=== PATIENT | female | born 1940 | race Caucasian/White ===

== ENCOUNTER → 2022-11-01 | Outpatient (CLI) | payer MEDICARE ==
--- NOTE | 2022-11-01 10:37 | CT ---
EXAMINATION TYPE: CT abdomen pelvis wo con CT DLP: 796 mGycm, Automated exposure control for dose reduction was used. DATE OF EXAM: 11/01/2022 10:19 AM COMPARISON: None CLINICAL INDICATION:Female, 81 years old with history of M54.50 LOW BACK PAIN, UNSPECIFIED; LOW BACK PAIN TECHNIQUE: Standard CT of the abdomen and pelvis without IV or oral contrast. Lack of IV or oral co ntrast limits evaluation of solid and hollow organ viscera. Coronal and sagittal reformats were perfo rmed. FINDINGS: LOWER CHEST: Unremarkable ABDOMEN LIVER: Left hepatic lobe 2.7 cm cyst. Additional subcentimeter hypodense foci within the liver which are too small characters but likely represent cysts. GALLBLADDER AND BILE DUCTS: Mildly distended gallbladder without surrounding inflammatory changes. No biliary ductal dilatation. PANCREAS: Unremarkable noncontrast appearance SPLEEN: Unremarkable noncontrast appearance ADRENAL GLANDS: Unremarkable noncontrast appearance. KIDNEYS AND URETERS: No evidence of hydronephrosis or renal calculus. Right superior pole cyst measur ing up to 5.8 cm. Right mid kidney cyst measuring up to 4.7 cm. PELVIS BLADDER: Poorly visualized due to streak artifact from hip prosthesis. REPRODUCTIVE: Poorly visualized due to streak artifact from hip prosthesis. ABDOMEN & PELVIS STOMACH AND BOWEL: Small hiatal hernia, duodenum is unremarkable. Distal colonic diverticulosis witho ut evidence for acute diverticulitis. Postsurgical changes from appendectomy. No evidence of bowel ob struction. PERITONEUM: No evidence of pneumoperitoneum or free fluid. VASCULATURE: Mild atherosclerotic calcifications are present throughout the abdominal aorta and its b ranches. No evidence of aortic aneurysm. MUSCULOSKELETAL: Dextrocurvature of the thoracolumbar spine. Prominent Schmorl's nodes involving the inferior endplate of the L3 and L4 vertebral bodies. Schmorl's node versus central compression deform ity involving the superior endplate of the L2 vertebral body with approximately 10% height loss and n o retropulsion. Multilevel degenerative disc disease with disc space narrowing, endplate sclerosis, v acuum disc disease, and anterior osteophytosis. Grade 1 anterolisthesis of L3 on L4 and L4 on L5. No pars defects. Multilevel facet arthropathy. Postsurgical changes from bilateral total hip arthroplast y. This creates streak artifact which limits evaluation. Degenerative changes of the pubic symphysis. LYMPH NODES: No gross evidence for lymphadenopathy. SOFT TISSUE/ABDOMINAL WALL: Small fat filled umbilical and periumbilical hernias. IMPRESSION: 1. No acute intra-abdominal/pelvic process. 2. Age-indeterminate Schmorl's node versus superior endplate compression deformity of the L2 vertebra l body with approximately 10% height loss and no retropulsion. 3. Multilevel degenerative disc disease and facet arthropathy as described above. 4. Colonic diverticulosis without evidence for acute diverticulitis.
== END | disposition home or self-care (01) ==
LOC: RADCTMAIN 09:32
PROVIDERS: ATTEND Family Medicine
DX: K57.30 Diverticulosis of large intestine without perforation or abscess without bleeding (principal); M51.36 Other intervertebral disc degeneration, lumbar region; M47.816 Spondylosis without myelopathy or radiculopathy, lumbar region; M43.16 Spondylolisthesis, lumbar region; Z96.643 Presence of artificial hip joint, bilateral
CPT/HCPCS: 74176

== ENCOUNTER 2024-02-18 14:57 | Emergency (ER) | payer MEDICARE ==
[2024-02-18 15:02] VITALS: BP 159/73; PULSE 68; RESP 16; TEMP 97.6
--- NOTE | 2024-02-18 15:25 | ED ---
Fall HPI - General Chief Complaint: Fall Stated Complaint: left hip pain Time Seen by Provider: 02/18/24 15:03 Source: patient, RN notes reviewed Mode of arrival: wheelchair Limitations: no limitations - History of Present Illness Initial Comments: This is an 83-year-old female who presents to the emergency department for a fall. States that 2 days ago a chair gave out from underneath her causing her to fall and injure her hips. Unsure exactly how she landed, but she has since had ongoing pain to both of her hips and buttocks. Denies hitting her head or taking any blood thinners. She has been able to ambulate, but states that it is difficult. She has tried taking ibuprofen without much relief. MD Complaint: fall - Related Data Previous Rx's Medication Instructions Recorded Meloxicam [Mobic] 15 mg PO DAILY PRN #20 tab 02/18/24 methocarbamoL [Robaxin-750] 750 mg PO QID PRN #30 tab 02/18/24 Allergies Allergy/AdvReac Type Severity Reaction Status Date / Time No Known Allergies Allergy Verified 02/18/24 15:02 Review of Systems ROS Statement: Those systems with pertinent positive or pertinent negative responses have been documented in the HPI. ROS Other: All systems not noted in ROS Statement are negative. Past Medical History Smoking Status: Never smoker Past Alcohol Use History: Occasional Past Drug Use History: None Reported General Exam Limitations: no limitations General appearance: alert, in no apparent distress Head exam: Present: atraumatic, normocephalic, normal inspection Respiratory exam: Present: normal lung sounds bilaterally. Absent: respiratory distress, wheezes, rales, rhonchi, stridor Cardiovascular Exam: Present: regular rate, normal rhythm, normal heart sounds. Absent: systolic murmur, diastolic murmur, rubs, gallop, clicks Extremities exam: Present: other (No shortening or rotation of the bilateral lower extremities. Full range of motion, however this does induce pain. 2+ DP and PT pulses bilaterally) Neurological exam: Present: alert, oriented X3, CN II-XII intact Psychiatric exam: Present: normal affect, normal mood Skin exam: Present: warm, dry, intact, normal color. Absent: rash Course Vital Signs 02/18/24 14:59 Temperature 97.6 F Pulse Rate 68 Respiratory 16 Rate Blood Pressure 159/73 O2 Sat by Pulse 97 Oximetry Medical Decision Making - Medical Decision Making This is an 83-year-old female who presents to the emergency department for hip pain after a fall. Was pt. sent in by a medical professional or institution? @ -No Did you speak to anyone other than the patient for history? @ -No Did you review nursing and triage notes? @ -Yes, and I agree, it is accurate with regards to the patient's symptoms. Were old charts reviewed? @ -No Differential Diagnosis? @ -Differential Hip Pain: Fracture, dislocation, osteoarthritis, rheumatoid arthritis, septic arthritis, gout, synovitis, piriformis syndrome, bursitis, arterial occlusion, DVT, femoroacetabular inpingement, labral tear, avascular necrosis, SI joint dysfun ction, this is not meant to be an all-inclusive list. EKG interpreted by me (3pts min.)? @ -Not obtained X-rays interpreted by me (1pt min.)? @ -X-ray of the bilateral hips/AP pelvis and lumbar spine obtained. My interpretation identifies no acute fractures on any of the images. CT interpreted by me (1pt min.)? @ -CT scan of the pelvis obtained. My interpretation identifies no acute fractures. U/S interpreted by me (1pt. min.)? @ -Not obtained What testing was considered but not performed? (CT, X-rays, U/S, labs)? Why? @ -None What meds were considered but not given? Why? @ -None Did you discuss the management of the patient with other professionals? @ -No Did you reconcile home meds? @ -No Was smoking cessation discussed for >3mins.? @ -No Was critical care preformed (if so, how long)? @ -No Were there social determinants of health that impacted care today? How? (Homelessness, low income, unemployed, alcoholism, drug addiction, transportation, low edu. Level, literacy, decrease access to med. care, intermediate, rehab)? @ -No Was there de-escalation of care discussed even if they declined? (Discuss DNR or withdrawal of care, Hospice)? @ -No What co-morbidities impacted this encounter? (DM, HTN, Smoking, COPD, CAD, Cancer, CVA, Hep., AIDS, mental health diagnosis, sleep apnea, morbid obesity)? @ -None Was patient admitted / discharged? @ -Discharged. We first started with an x-ray of the bilateral hips/AP pelvis and lumbar spine. No acute process was identified. However, she continued to have pain and we proceeded with a CT scan of the pelvis. No acute fractures were identified on the CT scan. Findings reviewed with the patient. Pain treated in the emergency department. Prescription for meloxicam and Robaxin provided to see if that offers her any more benefit. Advised taking Tylenol as well and having follow-up with her primary care provider. Patient discharged home in stable condition. Case discussed with ED attending Dr. Crystal. Return precautions reviewed in depth, the patient is instructed to return to the emergency department with any new, worsening, or concerning symptoms. Patient verbalized understanding. Undiagnosed new problem with uncertain prognosis? @ -None Drug Therapy requiring intensive monitoring for toxicity (Heparin, Nitro, Insulin, Cardizem)? @ -None Were any procedures done? @ -None Diagnosis/symptom? @ -Fall, bilateral hip pain Acute, or Chronic, or Acute on Chronic? @ -Acute Uncomplicated (without systemic symptoms) or Complicated (systemic symptoms)? @ -Uncomplicated Side effects of treatment? @ -None Exacerbation, Progression, or Severe Exacerbation] @ -Not applicable Poses a threat to life or bodily function? @ -No - Radiology Data Radiology results: report reviewed, image reviewed Disposition Clinical Impression: Fall, Bilateral hip pain Disposition: HOME SELF-CARE Instructions (If sedation given, give patient instructions): Fall Prevention for Older Adults (ED), Hip Pain (ED) Additional Instructions: Return to the emergency department with any new, worsening, or concerning symptoms. Begin taking the Mobic once daily. Do not take any other anti- inflammatories such as ibuprofen if you choose to take this, take one or the other. You may take it with Tylenol. Take the Robaxin up to 4 times daily. Be aware that this may make you drowsy. Follow up with your primary care provider in 1-2 days. Prescriptions: Meloxicam [Mobic] 15 mg PO DAILY PRN #20 tab PRN Reason: Pain methocarbamoL [Robaxin-750] 750 mg PO QID PRN #30 tab PRN Reason: Pain Is patient prescribed a controlled substance at d/c from ED?: No Referrals: Monse Flaherty DO [Primary Care Provider] - 1-2 days Time of Disposition: 16:50
[2024-02-18] MEDS: KETOROLAC 15 MG/ML 1 ML VIAL IM STA (15:34)
[2024-02-18] MEDS: MORPHINE SULFATE 4 MG/ML SYRINGE IM STA (15:34)
--- NOTE | 2024-02-18 15:34 | XR ---
EXAMINATION TYPE: XR lumbar spine 2 or 3V DATE OF EXAM: 02/18/2024 3:26 PM COMPARISON: Previous CT abdomen/pelvis study 11/01/2022. CLINICAL INDICATION: Female, 83 years old with history of Fall; [facility] TECHNIQUE: XR lumbar spine 2 or 3V - Frontal, lateral and coned in L5-S1 lateral views of the spine. FINDINGS: Osseous structures demineralized. Multilevel lumbosacral spine degenerative changes. Modera te to severe chronic compression deformity of the L4 vertebral body. Moderate compression deformity o f the L2 superior endplate which appears slightly worse from prior study 10/30/2022. Anterolisthesis o f L3 on L4 and L4 on L5. Multilevel facet arthropathy, most pronounced at L4-5 and L5-S1. IMPRESSION: 1. No definite acute fracture or traumatic subluxation of the lumbosacral spine. 2. Chronic compression deformities of the L2 and L4 vertebral bodies, present on prior CT study 11/01. [facility], , 02/18/2024 3:32 PM
--- NOTE | 2024-02-18 15:36 | XR ---
EXAMINATION TYPE: XR Hip Bilateral and AP pelvis DATE OF EXAM: 02/18/2024 3:26 PM COMPARISON: Previous CT study 11/01/2022. CLINICAL INDICATION: Female, 83 years old with history of Fall; H TECHNIQUE: XR Hip Bilateral and AP pelvis; hip was examined in the frontal and lateral projections an d a AP pelvis. FINDINGS: No acute fracture or dislocation. Bilateral hip arthroplasty devices present. No periprosthetic lucency or evidence of loosening. Vascular calcifications. IMPRESSION: No acute fracture or dislocation. [facility], , 02/18/2024 3:34 PM
[2024-02-18] MEDS: HYDROmorphone 1 MG/ML 1 ML SYRINGE IVP STA (16:26)
--- NOTE | 2024-02-18 16:26 | CT ---
EXAMINATION TYPE: CT pelvis wo con DATE OF EXAM: 02/18/2024 4:15 PM COMPARISON: Previous CT abdomen/pelvis dated 10/30/2022. CLINICAL INDICATION: Female, 83 years old with history of Hip pain after fall; Bilateral hip pain aft er fall, negative xr results TECHNIQUE: Axial CT pelvis wo con;Sagittal and coronal reformats were created on a separate workstat ion. Oral contrast used: without Oral Contrast CT DLP: 440.1 mGycm, Automated exposure control for dose reduction was used. FINDINGS: Partially visualized abdomen demonstrate simple appearing exophytic cyst in the right kidney. No evid ence of bowel obstruction. Clonic diverticulosis without acute diverticulitis. Partially visualized g allbladder unremarkable. Calcified aspect of the abdominal aorta without definite aneurysmal dilatati on of the visualized portions. No significant free fluid or free air in the visualized abdomen and pe lvis. Small fat-containing. Fat-containing periumbilical hernia noted. Urinary bladder unremarkable b ut limited due to streak artifact from bilateral hip arthroplasty devices. No acute fracture or dislocation involving the bilateral hips. Pelvic bones appear acutely intact. Os seous structures demineralized. Partially visualized lumbosacral spine degenerative changes and moder ately severe L4 compression deformity, present on prior study 10/30/2022. IMPRESSION: No acute fracture or dislocation. [facility], , 02/18/2024 4:24 PM
[2024-02-18] MEDS: ACET/COD 300 MG/30 MG STARTER PACK 6 TAB BTL PO STA (17:01)
== END 2024-02-18 17:13 | disposition home or self-care (01) ==
LOC: EC 14:57
DX: M25.552 Pain in left hip (principal); M25.551 Pain in right hip; W07.XXXA Fall from chair, initial encounter
CPT/HCPCS: 72100; 73521; 72192; 99284; 96374; 96372; J2270; J1171; J1885

== ENCOUNTER → 2024-03-12 | Outpatient (CLI) | payer MEDICARE ==
--- NOTE | 2024-03-12 09:33 | MR ---
INDICATION: Patient age:Female; 83 years old; Reason for study: M54.41 R LUMBAGO WITH SCIATICA S32.000A WDG COMP F; [facility]. COMPARISONS: CT pelvis 02/18/2024, lumbar spine radiograph 02/18/2024, CT abdomen and pelvis 11/01/2022. TECHNIQUE: Multi planar, multi sequence imaging was performed utilizing: T1-weighted, T2-weighted, a nd turbo inversion recovery imaging of the lumbar spine. The patient was not given contrast. FINDINGS: There are 5 lumbar type vertebral bodies identified. Dextrocurvature of the lumbar spine wi th apex at L2-L3. Grade 1 anterolisthesis of L3 on L4 and L4 on L5. Hyperintense STIR signal involvin g the T12 vertebral body with corresponding low T1 signal. Demonstrates approximately 30% height loss with no retropulsion. Stable central compression deformity of the L2 vertebral body with approximate ly 50% height loss and no retropulsion. Stable anterior wedge compression deformity of the L4 vertebr al body with approximately 80% height loss and no retropulsion. Acute Schmorl's node involving the in ferior endplate of the L4 vertebral body. Type II Modic changes involving the surrounding endplates o f the T11-T12 disc. Multilevel anterior osteophytosis. Multilevel disc desiccation is present. The c onus medullaris and the distal spinal cord do appear unremarkable with regards to their signal intens ity and morphology. T11-T12: Small broad-based disc bulge without significant effacement of the intrathecal sac bilateral facet arthropathy. [id number] bilateral neuroforaminal stenosis. T12-L1: Small central disc protrusion without significant spinal canal stenosis. Bilateral facet arth ropathy. Moderate bilateral neural foraminal stenosis. L1-L2: Broad-based disc bulge with ligamentum flavum buckling and bilateral facet arthropathy contri bute to mild central canal stenosis. Moderate bilateral neuroforaminal stenosis. L2-L3: No significant disc pathology is identified. The spinal canal is patent. Bilateral facet arth ropathy with left greater than right. Moderate left neural foraminal stenosis. The right neural beto en is patent. L3-L4: Broad-based disc bulge with ligamentum flavum buckling and bilateral facet arthropathy contri bute to mild to moderate central canal stenosis. Severe bilateral neuroforaminal stenosis. L4-L5: Broad-based disc bulge with bilateral facet arthropathy and ligamentum flavum buckling contrib dillon to moderate central canal stenosis. Most prominent along the right lateral aspect due to facet ar thropathy. There is severe right and moderate left neural foraminal stenosis. L5-S1: Broad base disc bulge without significant effacement of the anterior thecal sac. Ligamentum f lavum buckling with bilateral facet arthropathy demonstrated. Moderate left and moderate to severe ri ght neural foraminal stenosis. Other significant findings: Post surgical changes from bilateral hip arthroplasty with susceptibility artifact. Partial visualization of T2 hyperintense right renal upper pole cyst measuring at least 5. 7 cm. Additional anterior exophytic right renal simple cysts measuring up to 4.[address] A few sub[address] T2 hyperintense cysts within both kidneys. Cholelithiasis demonstrated. IMPRESSION: 1. Acute/subacute compression fracture involving the T12 vertebral body with approximately 30% heigh t loss and no retropulsion. 2. Acute Schmorl's node involving the inferior endplate of the L4 vertebral body. 3. Stable compression deformities involving the L2 and L4 vertebral bodies. 4. Moderate to severe multilevel degenerative disc disease and facet arthropathy as described above. 5. Dextroscoliosis of the lumbar spine with grade 1 anterolisthesis of L3 on L4 and L4 on L5. [facility], , 03/12/2024 9:31 AM
== END | disposition home or self-care (01) ==
LOC: RADMRIMAIN 07:18
PROVIDERS: ATTEND Family Medicine
DX: S32.000A Wedge compression fracture of unspecified lumbar vertebra, initial encounter for closed fracture (principal); M54.41 Lumbago with sciatica, right side; M51.360 Other intervertebral disc degeneration, lumbar region with discogenic back pain only; M43.16 Spondylolisthesis, lumbar region
CPT/HCPCS: 72148

== ENCOUNTER → 2024-04-11 | Outpatient (CLI) | payer MEDICARE ==
--- NOTE | 2024-04-11 14:31 | CT ---
EXAMINATION TYPE: CT thoracic spine wo con DATE OF EXAM: 04/11/2024 COMPARISON: None CLINICAL INDICATION: Female, 83 years old with history of M54.6 thoracic pain; PHH, Chronic back pain CT DLP: combined 1128.4 mGycm Automated exposure control for dose reduction was used. Findings: There is a mild inferior endplate compression fracture of T12 with no significant retropulsion. There are marked flowing anterior osteophytes in the mid and lower thoracic spine consistent with DISH (di ffuse idiopathic skeletal hyperostosis). There is marked degenerative disc disease at T11/T12 level w here there is marked space narrowing and vacuum phenomenon. There is no large thoracic disc herniation. There is no spinal stenosis. The paraspinal soft tissues are unremarkable. IMPRESSION: 1. Mild inferior endplate compression fracture of T12 of indeterminate age. There is no significant r etropulsion. 2. No thoracic spinal stenosis. 3. DISH 4. Advanced degenerative disc disease at T11/T12 level. [facility], Workstation: [facility], 04/11/2024 2:29 PM
--- NOTE | 2024-04-11 15:05 | CT ---
EXAMINATION TYPE: CT lumbar spine wo con DATE OF EXAM: 04/11/2024 1:47 PM COMPARISON: None CLINICAL INDICATION: Female, 83 years old with history of M54.50 Lumbar pain; PHH, Chronic back pain TECHNIQUE: Unenhanced CT of the lumbar spine was performed. Bone and soft tissue window settings are submitted as well as coronal and sagittal reconstructions. CT DLP: combined 1128.[address] CTDI: mGy Automated exposure control for dose reduction was used. FINDINGS: There is a moderate superior endplate compression fracture of L2 of indeterminate age. There is a mod erate to severe compression fracture of L4 of indeterminate age. There is a mild inferior endplate co mpression fracture T12 of indeterminate age. There is severe degenerative disc disease at T11/T12 level where there is marked disc space narrowing , vacuum, and spondylosis. There is a slight anterolisthesis of L5 forward on L5. The disc spaces throughout the lumbar spine are well preserved. There is marked facet arthropathy in the lumbar spine from L1 to S1. Visualized sacrum and SI joints are unremarkable. Secondary to the grade 1 anterolisthesis of L4 and L5, circumferential disc bulge, marked hypertrophy of the facets and mild thickening of ligamentum flavum, there is a moderate to severe spinal stenosi s. There are no large lumbar disc herniations IMPRESSION: 1. Multiple vertebral segment compression fractures of indeterminate age, likely insufficiency fractu res given the osteopenia. 2. No significant retropulsion of the fractures. 3. Moderate to severe L4-5 spinal stenosis as described above. 4. Grade 1 anterolisthesis of L4 on L5. 5. Marked arthropathy of the facet joints throughout the lumbar spine. 6. Severe degenerative disc disease at the T11/T12 level. [facility], , 04/11/2024 3:03 PM
== END | disposition home or self-care (01) ==
LOC: RADCTMAIN 12:52
PROVIDERS: ATTEND Orthopaedic Surgery
DX: M43.16 Spondylolisthesis, lumbar region (principal); S32.040A Wedge compression fracture of fourth lumbar vertebra, initial encounter for closed fracture; M51.16 Intervertebral disc disorders with radiculopathy, lumbar region; M47.26 Other spondylosis with radiculopathy, lumbar region; M48.061 Spinal stenosis, lumbar region without neurogenic claudication
CPT/HCPCS: 72128; 72131

== ENCOUNTER → 2024-09-20 | Outpatient (CLI) | payer MEDICARE ==
--- NOTE | 2024-09-23 13:26 | BD ---
EXAMINATION TYPE: Axial Bone Density DATE OF EXAM: 09/20/2024 CLINICAL HISTORY: 83 years old Female. ICD-10 CODE: Z87.311 PERSONAL HISTORY OF (HEALED) OTHER PATHO LO , Additional History: Height: 60 in Weight: 151 lbs FRAX RISK QUESTIONS: Family History (Parent hip fracture): yes mother Secondary Osteoporosis: 3. Menopause before 45: total hysterectomy age 39 Rheumatoid Arthritis: yes HISTORY OF: Spine Fracture: l-spine 5 fx Surgery to Spine/Hip(left): 2024; hip replacement rt 1981 MEDICATIONS: Osteoporosis Medications: not now Which medication: Fosamax How Lon. years pt has had l-spine fx and surgeries pt has had brock hip replacements EXAM MEASUREMENTS: Bone mineral densitometry was performed using the [employer] System. Bone mineral density about the R Wrist (g/cm2): 0.533 T Score values are as follows: -----Dist. R+U: -0.8 -----Prox. R+U: -1.7 -----Radius total: -2.3 Z Score values are as follows: -----Dist. R+U: 2.2 -----Prox. R+U: 1.4 -----Radius total: 0.7 Bone mineral density baseline IMPRESSION: Osteopenia (T Score between -2.5 and -1). There is slightly increased risk of fracture and the patient may be considered for treatment. Re-Screen 2-5 years. NOTE: T-SCORE=SD OF THE YOUNG ADULT MEAN. [facility], , 09/23/2024 1:23 PM
== END | disposition home or self-care (01) ==
LOC: RADBDWWP 16:16
PROVIDERS: ATTEND Family Medicine
DX: M85.89 Other specified disorders of bone density and structure, multiple sites (principal); Z87.311 Personal history of (healed) other pathological fracture
CPT/HCPCS: 77080

== ENCOUNTER → 2024-10-01 | Outpatient (CLI) | payer MEDICARE ==
--- NOTE | 2024-10-01 13:39 | MM ---
Reason for Exam: Hx of breast cancer, conservation therapy. Patient History: Menarche at age 14. First Full-Term at age 16. Left ovary removed at age 38. Right ovary removed at age 38. Hysterectomy at age 38. Postmenopausal. Breast cancer, left, age 73. Previous chemotherapy. Tissue Density: The breasts are almost entirely fatty. Findings: Analyzed By CAD. Right breast: There is no suspicious group of microcalcifications or new suspicious mass. Benign-appearing calcifications right breast. Left breast: There is no suspicious group of microcalcifications or new suspicious mass. Benign-appearing calcifications left breast. Overall Assessment: Benign, BI-RAD 2 Management: Screening Mammogram of both breasts in [address] [facility] will attempt to contact patient to return for supplemental views and ultrasound if indicated. Patient should continue monthly self-breast exams. A clinical breast exam by your physician is recommended on an annual basis. This exam should not preclude additional follow-up of suspicious palpable abnormalities. Note on Amanda scores and lifetime risk: 1. A Amanda score greater than 3% is considered moderate risk. If this is the case, consider specialist referral to assess eligibility for a risk reducing agent. 2. If overall lifetime risk for the development of breast cancer is 20% or higher, the patient may qualify for future screening with alternating mammogram and breast MRI. [facility], , 10/01/2024 1:35 PM. Electronically signed and approved by: Irving Quintero DO
[2024-10-01 13:48] VITALS: BP 159/92; PULSE 67; RESP 16; TEMP 97.9
--- NOTE | 2024-10-01 15:17 | P.HPOB ---
History of Present Illness H&P Date: 10/01/24 Chief Complaint: The patient is here for her routine gynecologic exam and ma mmogram. This is an 83-year-old -0-1-3 with an LMP of 1979. The patient is here to establish with this office. Is been more than 5 years since her last pelvic exam. She has been a since approximately 2018. She was not sexually active for about 5 or 6 years. She has been with her boyfriend for about 1 year and they state they have attempted sexual intercourse but it was too painful and dry. They have tried lubricants without much improvement. She is status post hysterectomy at age 39 for benign reasons. She is uncertain as to what type of hysterectomy was done and is not sure if the ovaries were removed at that time. Review of Systems The patient's weight has been stable over the last year. She denies respiratory, cardiac, or G.I. problems. Past Medical History Past Medical History: Cancer Additional Past Medical History / Comment(s): Left breast cancer status postlumpectomy and radiation therapy in approximately 2009. Chronic back problems. Short-term memory loss. Left retina problems. Osteopenia. Left retina problem. PAST REINFORCING BAR SETTER HISTORY: She has no history of STDs. History of Any Multi-Drug Resistant Organisms: None Reported Past Surgical History: Breast Surgery, Hysterectomy, Joint Replacement, Orthopedic Surgery Additional Past Surgical History / Comment(s): Hysterectomy approximately 1979, bilateral hip replacement, left breast lumpectomy. Colonoscopy 2018. Past Psychological History: No Psychological Hx Reported Smoking Status: Never smoker Past Alcohol Use History: Occasional (3-4 drinks per week.) Additional Past Alcohol Use History / Comment(s): 3-4 drinks/week Past Drug Use History: None Reported Additional History: She has been a since approximately 2018. She has been with her boyfriend since 2023 and they do not live together. She is retired. - Past Family History Father Family Medical History: Unable to Obtain, Myocardial Infarction (NM) Mother Family Medical History: No Reported History, Myocardial Infarction (NM) Additional Family Medical History / Comment(s): . Brother(s) Family Medical History: Myocardial Infarction (NM) Medications and Allergies Home Medications Medication Instructions Recorded Confirmed Type Celecoxib [CeleBREX] 200 mg PO DAILY 04/25/24 10/01/24 History Gabapentin [Neurontin] 100 mg PO HS 04/25/24 10/01/24 History Ketorolac 0.5% Ophth Soln [Acular 1 drop LEFT EYE BID 04/25/24 10/01/24 History 0.5%] Prednisolone Acetate/Pf 1 drop LEFT EYE BID 04/25/24 10/01/24 History [Prednisolone Acet 1% Eye Drop] traMADol HCl [Ultram] 50 mg PO Q6H PRN #40 tab 04/30/24 10/01/24 Rx Allergies Allergy/AdvReac Type Severity Reaction Status Date / Time Penicillins Allergy Unknown Verified 10/01/24 13:36 Exam Vital Signs Temp Pulse Resp BP Pulse Ox 10/01/24 13:41 97.9 F 67 16 159/92 99 Intake and Output 09/30/24 10/01/24 10/01/24 22:59 06:59 14:59 Other: Weight 67.132 kg Height 4 feet 11 inches, weight 148 pounds, BMI 29.9. This is a well-developed well-nourished white female who is alert and oriented times 3 in no acute distress. HEENT: Within normal limits. NECK: Supple without mass or thyromegaly. CHEST AND LUNGS: Clear to auscultation. HEART: Regular rate and rhythm. BREASTS: Are without mass or discharge. There is a scar at approximately the 10 to 12 o'clock position of the left breast with some firmness consistent with her previous lumpectomy and radiation therapy. AXILLARY EXAM: Negative for adenopathy. BACK: Negative for CVA tenderness. ABDOMEN: Soft, nontender, without palpable masses. PELVIC EXAM: External genitalia appears normal with mild to moderate atrophy. Vagina appears normal with mild to moderate atrophy. There is no evidence of prolapse. Bimanual examination is negative for mass or tenderness. RECTAL EXAM: Rectovaginal exam is negative for mass or tenderness and is negative for occult blood. EXTREMITIES: Nontender. IMPRESSION: 1. 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 Normal gynecologic exam. 2. History of left breast cancer status postlumpectomy and radiation therapy with no evidence of recurrence on exam today. 3. History of osteopenia based on a 09/20/2024 bone density test and this was done on her right wrist. 4. Elevated blood pressure. PLAN: 1. Pap smears have been discontinued. 2. Self breast awareness was discussed with the patient. We have also discussed symptoms associated with inflammatory breast cancer. 3. Screening mammogram was done today and was benign. The patient was notified of this result. 4. Because of her history of breast cancer she will not be started on any estrogen product at this time. I have recommended a vaginal moisturizer to be used as directed. I have also recommended relaxation techniques to relax the muscles around the vagina. I have also recommended the use of lubricated condoms. She and her partner will try penetration very slowly with vaginal muscle relaxation techniques. If dryness continues to be an issue, we can consider a small amount of estradiol cream to the vagina since she is greater than 10 years out from her breast cancer and this would only be used locally. 5. We have discussed her elevated blood pressure. I have recommended that she check her own blood pressures on a regular basis at home and follow-up with her PCP for blood pressure elevations. 6. She was advised to return in one year for her annual well woman exam as needed.
== END | disposition home or self-care (01) ==
LOC: RADMAMWWP 12:40
PROVIDERS: ATTEND Obstetrics & Gynecology
DX: Z12.31 Encounter for screening mammogram for malignant neoplasm of breast (principal); R92.313 Mammographic fatty tissue density, bilateral breasts; N94.10 Unspecified dyspareunia; Z78.0 Asymptomatic menopausal state; Z85.3 Personal history of malignant neoplasm of breast
CPT/HCPCS: 77063; 77067